=== PATIENT | male | born 1930 | race Caucasian/White ===

== ENCOUNTER 2018-03-26 14:03 | Inpatient (IN) | payer MEDICARE, OTHER ==
[~2018-03-26] VITALS: Ht 167.6 cm; Wt 99.1 kg
[~2018-03-26 14:03] MED LIST: ALPR-624 PO; ASPI-1009 PO; BISA10SU60 RC; HYDR-4353 PO; HYT1T PO; LOSA1TAB39 PO; MAGN296S50 PO; METO50TA17 PO; MOME13HF INH; NOR5T PO; PANT-47 PO; SIMV10TA2 PO
[2018-03-26 15:09] LABS: BASOPHILS % (AUTO) 0 % (0-1); EOSINOPHILS # (AUTO) 0.4 X10'3 (0-0.9); EOSINOPHILS % (AUTO) 1.1 % (0-6); HEMATOCRIT 44.1 % (42.0-52.0); HEMOGLOBIN 14.6 g/dl (14.0-17.9); LYMPHOCYTES # (AUTO) 1.4 X10'3 (1.1-4.8); LYMPHOCYTES % (AUTO) 3.7 % (21-51); MEAN CORPUSCULAR HEMOGLOBIN 30.7 PG (27.0-31.0); MEAN PLATELET VOLUME 8.6 FL (7.4-10.4); MONOCYTES # (AUTO) 1.6 X10'3 (0-0.9); MONOCYTES % (AUTO) 4.1 % (2-12); NEUTROPHILS % (AUTO) 91.1 % (42-75); PLATELET COUNT 235 X10'3 (140-440); RED BLOOD COUNT 4.75 X10'6 (4.70-6.10); RED CELL DISTRIBUTION WIDTH 13.4 % (11.5-14.5)
[2018-03-26 15:15] LABS: WHITE BLOOD COUNT 38.4 X10'3 (4.5-11.0)
[2018-03-26 15:20] LABS: ALANINE AMINOTRANSFERASE 31 U/L (12-78); ALBUMIN 3.8 G/DL (3.4-5.0); ALBUMIN/GLOBULIN RATIO 1.1 (1.1-1.5); ALKALINE PHOSPHATASE 57 IU/L (46-116); ANION GAP 13 (8-16); ASPARTATE AMINO TRANSFERASE 19 U/L (10-37); BILIRUBIN,TOTAL 1.1 MG/DL (0.1-1.0); BLOOD UREA NITROGEN 31 MG/DL (7-18); BUN/CREATININE RATIO 15.3 (5.4-32.0); CALCIUM 9.1 MG/DL (8.5-10.1); CHLORIDE 101 MMOL/L (99-107); CREATININE 2.03 MG/DL (0.60-1.10); GLUCOSE 144 MG/DL (70-104); POTASSIUM 3.7 MMOL/L (3.5-5.1); SODIUM 140 MMOL/L (135-145); TOTAL PROTEIN 7.4 G/DL (6.4-8.2); eGFR 31 ML/MIN
[2018-03-26 15:32] LABS: INR 1.2 INR; PARTIAL THROMBOPLASTIN TIME 27 SECONDS (22-32); PROTHROMBIN TIME 11.7 SECONDS (9.0-12.0)
[2018-03-26] MEDS ORDERED: acetaminophen 325mg tablet PO STA (15:48)
[2018-03-26 15:49] LABS: PLATELET ESTIMATE NORMAL; TOTAL CELLS COUNTED 100
[2018-03-26] MEDS ORDERED: CefTRIAXone/D5W-Rocephin 1gm 50 ML IV ONE (15:50)
[2018-03-26] MEDS ORDERED: normal saline 1000ML IV soln IV ONE (15:50)
[2018-03-26] MEDS ORDERED: azithromycin/NS 500mg/250ml 250 ML IV ONE (15:50)
[2018-03-26] MEDS ORDERED: magnesium Cl slow-release 64mg tablet PO PRN (17:10)
[2018-03-26] MEDS ORDERED: potassium Cl 20 mEq SR tablet PO PRN (17:10)
[2018-03-26] MEDS ORDERED: ondansetron/PF 4mg/2ml inj IV PRN (17:10)
[2018-03-26] MEDS ORDERED: magnesium 4gm in 100ml NS 100 ML IV PRN (17:10)
[2018-03-26] MEDS ORDERED: mag hydrox/Alum hydrox/simeth 30ml oral suspension PO PRN (17:10)
[2018-03-26] MEDS ORDERED: potassium Cl 40MEQ/NS 500ml 500 ML IV PRN ×2 (17:10)
[2018-03-26] MEDS: normal saline 1000ml 1,000 ML IV SCH (18:35)
[2018-03-26] MEDS ORDERED: FURO-150 PO (18:56)
[2018-03-26] MEDS ORDERED: TRAZ-219 PO (18:56)
[2018-03-26] MEDS ORDERED: NIFE90TA44 PO (18:56)
[2018-03-26] MEDS ORDERED: POTA10TA19 PO (18:56)
[2018-03-26] MEDS ORDERED: TAMS0.4C32 PO (18:56)
[2018-03-26] MEDS ORDERED: SENN-162 PO (18:56)
[2018-03-26] MEDS: heparin, porcine 5000 units/ml vial SQ SCH (20:23)
[2018-03-26] MEDS ORDERED: MESSAGE TO PHARMACY PO ONE (21:20)
[2018-03-26] MEDS ORDERED: glucagon, human recombinant 1mg kit SUBCUT PRN (21:20)
[2018-03-26] MEDS ORDERED: dextrose 50%-water 50ml dispensing syringe IV PRN ×2 (21:20)
[2018-03-26] MEDS ORDERED: dextrose ORAL solution 15 GM/59 ML bottle PO PRN ×2 (21:20)
[2018-03-26 21:30] VITALS: BP 135/66
[2018-03-26] MEDS: insulin glargine (Lantus) pen - multi-dose SQ SCH (21:44)
[2018-03-26] MEDS ORDERED: FLUT1AER INH (21:59)
[2018-03-26 22:06] LABS: HEMOGLOBIN A1C 6.3 % (4.5-6.2)
[2018-03-27] VITALS: BP_SYST 109; BP_SYST 118; BP_DIAS 60; BP_DIAS 68
[2018-03-27] MEDS: guaiFENesin ER 600mg tablet PO SCH ×3 (00:01→20:33)
[2018-03-27] MEDS ORDERED: ipratropium/albuterol 3ml nebule NEB PRN (00:35)
[2018-03-27] MEDS: HYDROcodone/acetaminophen 10/325mg tab PO PRN ×3 (02:47→16:51)
[2018-03-27 05:12] LABS: BASOPHILS % (AUTO) 0.1 % (0-1); EOSINOPHILS % (AUTO) 0 % (0-6); HEMATOCRIT 38.3 % (42.0-52.0); HEMOGLOBIN 12.7 g/dl (14.0-17.9); LYMPHOCYTES # (AUTO) 0.7 X10'3 (1.1-4.8); LYMPHOCYTES % (AUTO) 2.6 % (21-51); MEAN CORPUSCULAR HEMOGLOBIN 30.8 PG (27.0-31.0); MEAN CORPUSCULAR HGB CONC 33.2 % (33.0-36.5); MEAN CORPUSCULAR VOLUME 92.8 FL (78-98); MEAN PLATELET VOLUME 9.1 FL (7.4-10.4); MONOCYTES # (AUTO) 1.1 X10'3 (0-0.9); MONOCYTES % (AUTO) 4.1 % (2-12); NEUTROPHILS # (AUTO) 25.2 X10'3 (1.8-7.7); NEUTROPHILS % (AUTO) 93.2 % (42-75); PLATELET COUNT 206 X10'3 (140-440); RED BLOOD COUNT 4.12 X10'6 (4.70-6.10); RED CELL DISTRIBUTION WIDTH 13.2 % (11.5-14.5)
[2018-03-27 05:23] LABS: ALBUMIN 3.1 G/DL (3.4-5.0); ANION GAP 12 (8-16); BLOOD UREA NITROGEN 28 MG/DL (7-18); BUN/CREATININE RATIO 17.5 (5.4-32.0); CHLORIDE 104 MMOL/L (99-107); GLUCOSE 131 MG/DL (70-104); MAGNESIUM 1.7 MG/DL (1.5-2.4); POTASSIUM 3.4 MMOL/L (3.5-5.1); SODIUM 140 MMOL/L (135-145); TOTAL CARBON DIOXIDE 23.7 MMOL/L (24-32); eGFR 41 ML/MIN
[2018-03-27 06:43] LABS: TOTAL CELLS COUNTED 100
[2018-03-27 06:44] LABS: PLATELET ESTIMATE NORMAL
[2018-03-27 07:00] VITALS: BP 132/60
[2018-03-27] MEDS: K and/or MAG REPLACEMENT MC SCH (07:39)
[2018-03-27] MEDS: aspirin 81mg tablet.DR PO SCH (07:39)
[2018-03-27] MEDS: heparin, porcine 5000 units/ml vial SQ SCH (07:39)
[2018-03-27] MEDS: CefTRIAXone 2gm/D5W 50ml 50 ML IV SCH (07:39)
[2018-03-27] MEDS: potassium Cl 20 mEq SR tablet PO PRN ×3 (07:42→20:35)
[2018-03-27] MEDS: azithromycin/NS 500mg/250ml 250 ML IV SCH (08:56)
[2018-03-27 11:00] VITALS: BP 118/68
[2018-03-27 19:45] VITALS: BP 124/67
[2018-03-27] MEDS: carVEDilol 3.125mg tablet PO SCH (20:34)
[2018-03-27] MEDS: apixaban 2.5mg tablet PO SCH (20:34)
[2018-03-27] MEDS: lactobacillus rhamnosus 10,000 MMU CELLS/CAPSULE PO SCH (20:34)
[2018-03-27] MEDS: atorvastatin 10mg tablet PO SCH (20:35)
[2018-03-27] MEDS: traZODone 50mg tablet PO SCH (21:29)
[2018-03-27] MEDS: insulin glargine (Lantus) pen - multi-dose SQ SCH (21:33)
[2018-03-27] MEDS: albuterol 2.5 MG/3 ML nebule NEB SCH ×2 (22:54→22:59)
[2018-03-27] MEDS: BUDESONIDE 0.25 MG/2 ML AMPUL.NEB IH SCH (23:00)
[2018-03-28] VITALS: BP 115/62
[2018-03-28 02:12] VITALS: BP 115/62
[2018-03-28] MEDS: acetaminophen 325mg tablet PO PRN (03:45)
[2018-03-28 04:44] LABS: BASOPHILS % (AUTO) 0 % (0-1); EOSINOPHILS # (AUTO) 0.3 X10'3 (0-0.9); EOSINOPHILS % (AUTO) 1.8 % (0-6); HEMATOCRIT 36.8 % (42.0-52.0); HEMOGLOBIN 12.2 g/dl (14.0-17.9); LYMPHOCYTES % (AUTO) 6.1 % (21-51); MEAN CORPUSCULAR HEMOGLOBIN 30.5 PG (27.0-31.0); MEAN CORPUSCULAR HGB CONC 33.1 % (33.0-36.5); MEAN CORPUSCULAR VOLUME 91.9 FL (78-98); MEAN PLATELET VOLUME 8.9 FL (7.4-10.4); MONOCYTES # (AUTO) 1.1 X10'3 (0-0.9); MONOCYTES % (AUTO) 7.1 % (2-12); NEUTROPHILS # (AUTO) 13.3 X10'3 (1.8-7.7); PLATELET COUNT 210 X10'3 (140-440); RED BLOOD COUNT 4.01 X10'6 (4.70-6.10); RED CELL DISTRIBUTION WIDTH 13.6 % (11.5-14.5); WHITE BLOOD COUNT 15.6 X10'3 (4.5-11.0)
[2018-03-28 04:52] LABS: ALBUMIN 2.8 G/DL (3.4-5.0); ANION GAP 8 (8-16); BLOOD UREA NITROGEN 24 MG/DL (7-18); BUN/CREATININE RATIO 14.6 (5.4-32.0); CALCIUM 8.2 MG/DL (8.5-10.1); CHLORIDE 105 MMOL/L (99-107); CREATININE 1.64 MG/DL (0.60-1.10); GLUCOSE 127 MG/DL (70-104); MAGNESIUM 1.7 MG/DL (1.5-2.4); POTASSIUM 3.8 MMOL/L (3.5-5.1); SODIUM 137 MMOL/L (135-145); TOTAL CARBON DIOXIDE 24.1 MMOL/L (24-32); eGFR 40 ML/MIN
[2018-03-28 08:00] VITALS: BP 123/69
[2018-03-28] MEDS ORDERED: non-formulary drug (Fluticasone/Vilanterol (Breo Ellipta 100-25 Mcg INH) 1 PUFF) INH SCH (08:00)
[2018-03-28] MEDS: K and/or MAG REPLACEMENT MC SCH (08:00)
[2018-03-28] MEDS: BUDESONIDE 0.25 MG/2 ML AMPUL.NEB IH SCH ×2 (08:08→22:40)
[2018-03-28] MEDS: albuterol 2.5 MG/3 ML nebule NEB SCH ×3 (08:08→22:40)
[2018-03-28] MEDS: CefTRIAXone 2gm/D5W 50ml 50 ML IV SCH (08:16)
[2018-03-28] MEDS: apixaban 2.5mg tablet PO SCH ×2 (08:16→19:38)
[2018-03-28] MEDS: aspirin 81mg tablet.DR PO SCH (08:16)
[2018-03-28] MEDS: guaiFENesin ER 600mg tablet PO SCH ×2 (08:16→19:37)
[2018-03-28] MEDS: lactobacillus rhamnosus 10,000 MMU CELLS/CAPSULE PO SCH ×2 (08:16→19:37)
[2018-03-28] MEDS: carVEDilol 3.125mg tablet PO SCH ×2 (08:16→19:38)
[2018-03-28] MEDS: azithromycin/NS 500mg/250ml 250 ML IV SCH (09:14)
[2018-03-28] MEDS: HYDROcodone/acetaminophen 10/325mg tab PO PRN ×2 (09:15→19:49)
[2018-03-28] MEDS: insulin Lispro (HumaLOG) vial - multi-dose SQ SCH (09:27)
[2018-03-28 12:03] VITALS: BP 153/81
[2018-03-28] MEDS: normal saline 1000ml 1,000 ML IV SCH (17:07)
[2018-03-28 18:30] VITALS: BP 117/75
[2018-03-28] MEDS: carvedilol 6.25mg tablet PO SCH (20:00)
[2018-03-28] MEDS: traZODone 50mg tablet PO SCH (21:29)
[2018-03-28] MEDS: atorvastatin 10mg tablet PO SCH (21:29)
[2018-03-28 22:30] VITALS: BP 93/50
[2018-03-29] VITALS: BP 152/89
[2018-03-29 05:14] LABS: ALBUMIN 2.7 G/DL (3.4-5.0); ANION GAP 8 (8-16); BLOOD UREA NITROGEN 20 MG/DL (7-18); CALCIUM 8.1 MG/DL (8.5-10.1); CHLORIDE 105 MMOL/L (99-107); CREATININE 1.54 MG/DL (0.60-1.10); GLUCOSE 100 MG/DL (70-104); MAGNESIUM 1.8 MG/DL (1.5-2.4); POTASSIUM 3.7 MMOL/L (3.5-5.1); SODIUM 137 MMOL/L (135-145); TOTAL CARBON DIOXIDE 24.1 MMOL/L (24-32); eGFR 43 ML/MIN
[2018-03-29 05:22] LABS: BASOPHILS % (AUTO) 0.4 % (0-1); EOSINOPHILS # (AUTO) 0.3 X10'3 (0-0.9); EOSINOPHILS % (AUTO) 2.9 % (0-6); HEMATOCRIT 37.3 % (42.0-52.0); HEMOGLOBIN 12.5 g/dl (14.0-17.9); LYMPHOCYTES # (AUTO) 1.1 X10'3 (1.1-4.8); MEAN CORPUSCULAR HEMOGLOBIN 30.9 PG (27.0-31.0); MEAN CORPUSCULAR HGB CONC 33.4 % (33.0-36.5); MEAN CORPUSCULAR VOLUME 92.5 FL (78-98); MEAN PLATELET VOLUME 9.5 FL (7.4-10.4); MONOCYTES # (AUTO) 1.1 X10'3 (0-0.9); NEUTROPHILS # (AUTO) 8.8 X10'3 (1.8-7.7); NEUTROPHILS % (AUTO) 76.7 % (42-75); PLATELET COUNT 233 X10'3 (140-440); RED BLOOD COUNT 4.03 X10'6 (4.70-6.10); RED CELL DISTRIBUTION WIDTH 13.2 % (11.5-14.5); WHITE BLOOD COUNT 11.5 X10'3 (4.5-11.0)
[2018-03-29] MEDS: K and/or MAG REPLACEMENT MC SCH (06:43)
[2018-03-29 07:00] VITALS: BP 159/90
[2018-03-29] MEDS: BUDESONIDE 0.25 MG/2 ML AMPUL.NEB IH SCH ×2 (07:07→20:47)
[2018-03-29] MEDS: albuterol 2.5 MG/3 ML nebule NEB SCH ×4 (07:08→20:47)
[2018-03-29] MEDS: lactobacillus rhamnosus 10,000 MMU CELLS/CAPSULE PO SCH ×2 (07:21→21:01)
[2018-03-29] MEDS: apixaban 2.5mg tablet PO SCH ×2 (07:21→21:00)
[2018-03-29] MEDS: carvedilol 6.25mg tablet PO SCH ×2 (07:21→21:01)
[2018-03-29] MEDS: CefTRIAXone 2gm/D5W 50ml 50 ML IV SCH (07:21)
[2018-03-29] MEDS: aspirin 81mg tablet.DR PO SCH (07:21)
[2018-03-29] MEDS: guaiFENesin ER 600mg tablet PO SCH ×2 (07:21→21:01)
[2018-03-29] MEDS: acetaminophen 325mg tablet PO PRN (07:22)
[2018-03-29] MEDS: azithromycin/NS 500mg/250ml 250 ML IV SCH (09:36)
[2018-03-29] MEDS: insulin Lispro (HumaLOG) vial - multi-dose SQ SCH ×2 (09:39→18:54)
[2018-03-29] MEDS: HYDROcodone/acetaminophen 10/325mg tab PO PRN ×2 (12:17→20:14)
[2018-03-29 18:30] VITALS: BP 157/79
[2018-03-29] MEDS: insulin glargine (Lantus) pen - multi-dose SQ SCH (21:00)
[2018-03-29] MEDS: traZODone 50mg tablet PO SCH (21:01)
[2018-03-29] MEDS: atorvastatin 10mg tablet PO SCH (21:01)
[2018-03-30] VITALS: BP_SYST 133; BP_SYST 138; BP_DIAS 68; BP_DIAS 72
[2018-03-30 04:14] LABS: ALBUMIN 2.6 G/DL (3.4-5.0); ANION GAP 12 (8-16); BLOOD UREA NITROGEN 22 MG/DL (7-18); BUN/CREATININE RATIO 13.5 (5.4-32.0); CALCIUM 7.9 MG/DL (8.5-10.1); CHLORIDE 106 MMOL/L (99-107); CREATININE 1.63 MG/DL (0.60-1.10); GLUCOSE 99 MG/DL (70-104); MAGNESIUM 1.8 MG/DL (1.5-2.4); POTASSIUM 3.7 MMOL/L (3.5-5.1); SODIUM 141 MMOL/L (135-145); eGFR 40 ML/MIN
[2018-03-30 04:32] LABS: BASOPHILS # (AUTO) 0.1 X10'3 (0-0.2); BASOPHILS % (AUTO) 0.6 % (0-1); EOSINOPHILS # (AUTO) 0.4 X10'3 (0-0.9); EOSINOPHILS % (AUTO) 4.7 % (0-6); HEMATOCRIT 34.4 % (42.0-52.0); HEMOGLOBIN 11.6 g/dl (14.0-17.9); LYMPHOCYTES # (AUTO) 1.4 X10'3 (1.1-4.8); LYMPHOCYTES % (AUTO) 14.3 % (21-51); MEAN CORPUSCULAR HEMOGLOBIN 31.1 PG (27.0-31.0); MEAN CORPUSCULAR HGB CONC 33.7 % (33.0-36.5); MEAN CORPUSCULAR VOLUME 92.2 FL (78-98); MEAN PLATELET VOLUME 8.8 FL (7.4-10.4); MONOCYTES # (AUTO) 1.1 X10'3 (0-0.9); MONOCYTES % (AUTO) 11.8 % (2-12); NEUTROPHILS # (AUTO) 6.5 X10'3 (1.8-7.7); NEUTROPHILS % (AUTO) 68.6 % (42-75); PLATELET COUNT 266 X10'3 (140-440); RED BLOOD COUNT 3.74 X10'6 (4.70-6.10); RED CELL DISTRIBUTION WIDTH 13.1 % (11.5-14.5); WHITE BLOOD COUNT 9.5 X10'3 (4.5-11.0)
[2018-03-30 07:00] VITALS: BP 146/76
[2018-03-30] MEDS: CefTRIAXone 2gm/D5W 50ml 50 ML IV SCH (07:31)
[2018-03-30] MEDS: K and/or MAG REPLACEMENT MC SCH (08:00)
[2018-03-30] MEDS: azithromycin/NS 500mg/250ml 250 ML IV SCH (08:00)
[2018-03-30] MEDS: BUDESONIDE 0.25 MG/2 ML AMPUL.NEB IH SCH (08:33)
[2018-03-30] MEDS: albuterol 2.5 MG/3 ML nebule NEB SCH ×2 (08:34→10:35)
[2018-03-30] MEDS: guaiFENesin ER 600mg tablet PO SCH (08:59)
[2018-03-30] MEDS: carvedilol 6.25mg tablet PO SCH (08:59)
[2018-03-30] MEDS: apixaban 2.5mg tablet PO SCH (09:00)
[2018-03-30] MEDS: lactobacillus rhamnosus 10,000 MMU CELLS/CAPSULE PO SCH (09:00)
[2018-03-30] MEDS: aspirin 81mg tablet.DR PO SCH (09:00)
[2018-03-30] MEDS: HYDROcodone/acetaminophen 10/325mg tab PO PRN (09:19)
[2018-03-30] MEDS ORDERED: AZIT500T5 PO (11:03)
[2018-03-30] MEDS ORDERED: LOSA50TA64 PO (11:03)
[2018-03-30] MEDS ORDERED: APIX2.5T PO (11:03)
[2018-03-30] MEDS ORDERED: CEFD300C3 PO (11:03)
== END 2018-03-30 12:32 | disposition home or self-care (01) | DRG 871 ==
LOC: ER 14:03 → ED HOLD 17:07 → EDBEDREQ 20:51 → SUR 3N 21:13
PROVIDERS: ADMIT Internal Medicine; ATTEND Family Medicine
PROC: 5A09357 Assistance with Respiratory Ventilation, Less than 24 Consecutive Hours, Continuous Positive Airway Pressure (ICD-10-PCS; principal; 2018-03-28)
PROC: 5A09357 Assistance with Respiratory Ventilation, Less than 24 Consecutive Hours, Continuous Positive Airway Pressure (ICD-10-PCS; 2018-03-29)
DX: A41.9 Sepsis, unspecified organism (principal); J18.1 Lobar pneumonia, unspecified organism; N17.9 Acute kidney failure, unspecified; I13.0 Hypertensive heart and chronic kidney disease with heart failure and stage 1 through stage 4 chronic kidney disease, or unspecified chronic kidney disease; I50.20 Unspecified systolic (congestive) heart failure; J44.0 Chronic obstructive pulmonary disease with (acute) lower respiratory infection; I48.91 Unspecified atrial fibrillation; G47.33 Obstructive sleep apnea (adult) (pediatric); R09.02 Hypoxemia; M19.90 Unspecified osteoarthritis, unspecified site; E11.22 Type 2 diabetes mellitus with diabetic chronic kidney disease; N18.9 Chronic kidney disease, unspecified; I25.10 Atherosclerotic heart disease of native coronary artery without angina pectoris; Z72.89 Other problems related to lifestyle; I25.2 Old myocardial infarction; Z95.5 Presence of coronary angioplasty implant and graft; Z79.01 Long term (current) use of anticoagulants; Z79.82 Long term (current) use of aspirin; Z79.899 Other long term (current) drug therapy; Z87.891 Personal history of nicotine dependence; Z82.49 Family history of ischemic heart disease and other diseases of the circulatory system; Z83.3 Family history of diabetes mellitus
CPT/HCPCS: 36415; 71045; 80048; 80053; 82948; 83036; 83605; 83735; 84145; 84484; 85025; 85610; 85730; 87040; 87070; 93005; 93306; 94640; 94667; 94668; 94760; 96360; 96361; 99285; G0378; J0456; J0696; J1644; J1815; J7030

== ENCOUNTER 2018-04-06 23:36 | Inpatient (IN) | payer MEDICARE, OTHER ==
[~2018-04-06] VITALS: Ht 175.3 cm; Wt 91.5 kg
[~2018-04-06 23:36] MED LIST changes: -ALPR-624 PO; +APIX2.5T PO; +AZIT500T5 PO; +CEFD300C3 PO; +FLUT1AER INH; -HYT1T PO; -LOSA1TAB39 PO; +LOSA50TA64 PO; -MAGN296S50 PO; -METO50TA17 PO; -MOME13HF INH; -NOR5T PO; -PANT-47 PO; +SENN-162 PO; +TAMS0.4C32 PO; +TRAZ-219 PO
[2018-04-07] MEDS ORDERED: diltiazem 5mg/ml 5ml inj. IV ONE
[2018-04-07 00:07] LABS: BASOPHILS # (AUTO) 0.2 X10'3 (0-0.2); BASOPHILS % (AUTO) 1.7 % (0-1); EOSINOPHILS # (AUTO) 0.3 X10'3 (0-0.9); HEMATOCRIT 43.6 % (42.0-52.0); LYMPHOCYTES # (AUTO) 2.1 X10'3 (1.1-4.8); LYMPHOCYTES % (AUTO) 16.1 % (21-51); MEAN CORPUSCULAR HEMOGLOBIN 30.1 PG (27.0-31.0); MEAN CORPUSCULAR HGB CONC 32.1 % (33.0-36.5); MEAN CORPUSCULAR VOLUME 93.8 FL (78-98); MEAN PLATELET VOLUME 8.4 FL (7.4-10.4); MONOCYTES # (AUTO) 0.7 X10'3 (0-0.9); MONOCYTES % (AUTO) 5.6 % (2-12); NEUTROPHILS # (AUTO) 9.7 X10'3 (1.8-7.7); NEUTROPHILS % (AUTO) 74.6 % (42-75); PLATELET COUNT 378 X10'3 (140-440); RED BLOOD COUNT 4.65 X10'6 (4.70-6.10); RED CELL DISTRIBUTION WIDTH 12.9 % (11.5-14.5)
[2018-04-07 00:44] LABS: ALANINE AMINOTRANSFERASE 57 U/L (12-78); ALBUMIN 3.3 G/DL (3.4-5.0); ALBUMIN/GLOBULIN RATIO 0.9 (1.1-1.5); ALKALINE PHOSPHATASE 64 IU/L (46-116); ANION GAP 14 (8-16); ASPARTATE AMINO TRANSFERASE 25 U/L (10-37); BILIRUBIN,TOTAL 0.3 MG/DL (0.1-1.0); BLOOD UREA NITROGEN 26 MG/DL (7-18); BUN/CREATININE RATIO 15.2 (5.4-32.0); CALCIUM 8.2 MG/DL (8.5-10.1); CHLORIDE 103 MMOL/L (99-107); CREATININE 1.71 MG/DL (0.60-1.10); GLUCOSE 125 MG/DL (70-104); POTASSIUM 3.5 MMOL/L (3.5-5.1); SODIUM 139 MMOL/L (135-145); TOTAL PROTEIN 6.8 G/DL (6.4-8.2); eGFR 38 ML/MIN
[2018-04-07] MEDS ORDERED: metoclopramide 5 mg/ml inj IV PRN (00:50)
[2018-04-07] MEDS ORDERED: ondansetron/PF 4mg/2ml inj IV PRN (00:50)
[2018-04-07] MEDS ORDERED: morphine 4 MG/ML inj SYRINge IV PRN (00:50)
[2018-04-07] MEDS ORDERED: HYDROcodone/acetaminophen 10/325mg tab PO PRN (00:50)
[2018-04-07] MEDS ORDERED: MESSAGE TO PHARMACY PO ONE (00:50)
[2018-04-07] MEDS ORDERED: HYDROmorphone 1 mg/ml syringe IV PRN (00:50)
[2018-04-07] MEDS ORDERED: acetaminophen 325mg tablet PO PRN (00:50)
[2018-04-07] MEDS ORDERED: bisacodyl 10mg suppository rectal RC PRN (00:50)
[2018-04-07] MEDS ORDERED: diphenhydrAMINE 50 mg/ml inj IV PRN (00:50)
[2018-04-07] MEDS ORDERED: mag hydrox/Alum hydrox/simeth 30ml oral suspension PO PRN (00:50)
[2018-04-07] MEDS ORDERED: magnesium hydroxide 30ml (MOM) UD suspension PO PRN (00:50)
[2018-04-07] MEDS ORDERED: acetaminophen 650mg rectal suppository RC PRN (00:50)
[2018-04-07] MEDS ORDERED: dextrose ORAL solution 15 GM/59 ML bottle PO PRN ×2 (00:50)
[2018-04-07] MEDS ORDERED: glucagon, human recombinant 1mg kit SUBCUT PRN (00:50)
[2018-04-07] MEDS ORDERED: diphenhydrAMINE 25mg capsule PO PRN (00:50)
[2018-04-07] MEDS ORDERED: insulin Lispro (HumaLOG) vial - multi-dose SQ SCH (00:50)
[2018-04-07] MEDS ORDERED: dextrose 50%-water 50ml dispensing syringe IV PRN ×2 (00:50)
[2018-04-07 01:09] LABS: D-DIMER 1.06 MG/L FEU (0-0.50); INR 1.2 INR; PARTIAL THROMBOPLASTIN TIME 25 SECONDS (22-32)
[2018-04-07 01:26] LABS: CREATINE KINASE 288 U/L (39-308); LIPASE 278 U/L (73-393)
[2018-04-07 04:40] LABS: MAGNESIUM 1.7 MG/DL (1.5-2.4); PHOSPHORUS 3.3 MG/DL (2.3-4.5)
[2018-04-07 07:08] VITALS: BP 188/96
--- NOTE | 2018-04-07 07:47 | NUR ---
According to patient's : Melvin is supposed to be off Lopressor.
[2018-04-07] MEDS ORDERED: tamsulosin 0.4mg capsule PO SCH (08:00)
[2018-04-07] MEDS ORDERED: aspirin 81mg tablet.DR PO SCH (08:00)
[2018-04-07] MEDS ORDERED: losartan 50mg tablet PO SCH (08:00)
[2018-04-07] MEDS ORDERED: apixaban 2.5mg tablet PO SCH (08:00)
[2018-04-07] MEDS ORDERED: doxycycline inj 100 MG in normal saline 100ml IV soln 100 ML IV SCH (08:00)
[2018-04-07] MEDS ORDERED: metoprolol tartrate 50mg tablet PO SCH (08:00)
[2018-04-07] MEDS ORDERED: docusate sod 100mg capsule PO SCH (08:00)
[2018-04-07] MEDS ORDERED: famotidine 20mg tablet PO SCH (08:00)
--- NOTE | 2018-04-07 08:27 | NUR ---
PAGER ID: [phone] MESSAGE: [phone] [phone] Melvin Trujillo says he has been no longer taking Lopressor at home, but it is in the emar from Dr Garg. Do you want him to be starting that med back up? GRETCHEN Mcgrath Ext [phone]
[2018-04-07 08:57] VITALS: BP 147/88
[2018-04-07] MEDS ORDERED: DILT180C95 PO (09:10)
[2018-04-07] MEDS ORDERED: FURO-150 PO (09:10)
--- NOTE | 2018-04-07 09:26 | NUR ---
Patient being discharged, Dr Keith says ABX not needed, Chest Xray is result of CHF.
--- NOTE | 2018-04-07 10:36 | NUR ---
PAGER ID: [phone] MESSAGE: [phone] Melvin Starr's is wondering if they can get a prescription for metoprolol. If you wanted to him to keep taking it. GRETCHEN Mcgrath Ext [phone]
--- NOTE | 2018-04-07 10:52 | NUR ---
PAGER ID: [phone] MESSAGE: [phone] Melvin Starr's is wondering if they can get a prescription for metoprolol, if you wanted him to keep taking it. She is unsure if his is . GRETCHEN Mcgrath Ext [phone]
--- NOTE | 2018-04-07 12:41 | NUR ---
Patient discharged: Stable per MD upon DC. IV and tele DC'd. Educated on meds and follow uop. Patient will set up follow up for CHF. Educated on dm survival skills, CHF and A-fib.
[2018-04-07] MEDS ORDERED: atorvastatin 10mg tablet PO SCH (21:00)
[2018-04-07] MEDS ORDERED: insulin glargine (Lantus) pen - multi-dose SQ SCH (21:00)
[2018-04-07] MEDS ORDERED: traZODone 50mg tablet PO SCH (21:00)
[2018-04-07] MEDS ORDERED: temazepam 15mg capsule PO PRN (21:00)
== END 2018-04-07 11:00 | disposition home or self-care (01) | DRG 308 ==
LOC: ER 23:36 → ED HOLD 04-07 00:49 → PCU 3S 04-07 07:05
PROVIDERS: ADMIT Family Medicine; ATTEND Internal Medicine
DX: I48.0 Paroxysmal atrial fibrillation (principal); I50.43 Acute on chronic combined systolic (congestive) and diastolic (congestive) heart failure; I16.1 Hypertensive emergency; I11.0 Hypertensive heart disease with heart failure; E03.9 Hypothyroidism, unspecified; I25.10 Atherosclerotic heart disease of native coronary artery without angina pectoris; E11.65 Type 2 diabetes mellitus with hyperglycemia; M19.90 Unspecified osteoarthritis, unspecified site; I25.2 Old myocardial infarction; Z79.82 Long term (current) use of aspirin; Z79.899 Other long term (current) drug therapy; Z79.01 Long term (current) use of anticoagulants; Z79.890 Hormone replacement therapy; Z82.49 Family history of ischemic heart disease and other diseases of the circulatory system; Z83.3 Family history of diabetes mellitus
CPT/HCPCS: 36415; 71045; 71250; 80053; 82550; 82948; 83605; 83690; 83735; 83880; 84100; 84439; 84443; 84480; 84484; 85025; 85379; 85610; 85730; 87070; 93005; 96374; 99285; G0378; J1815; J3490; J7030

== ENCOUNTER → 2021-01-28 | Emergency (ER) | payer OTHER ==
[~2021-01-28] VITALS: Ht 175.3 cm; Wt 88.6 kg
[~2021-01-28] MED LIST changes: -ASPI-1009 PO; -AZIT500T5 PO; +BICA50TA7 PO; -BISA10SU60 RC; -CEFD300C3 PO; +CHLO25TA10 PO; +DILT-94 PO; +FURO20TA4 PO; +LEVO500T89 PO; +LIDOcaine 2% 10ml TOPICAL JELLY (Urojet) MM ONE; +LIDOcaine 2% 10ml TOPICAL JELLY (Urojet) TP ONE; +LOSA25TA96 PO; -LOSA50TA64 PO; -SENN-162 PO; +SENN-263 PO; -TRAZ-219 PO; +TRAZ-256 PO
[2021-01-28 16:01] VITALS: BP 126/71
== END | disposition left against medical advice (07) ==
LOC: ER 15:56
DX: T83.091A Other mechanical complication of indwelling urethral catheter, initial encounter (principal); I48.91 Unspecified atrial fibrillation; I25.10 Atherosclerotic heart disease of native coronary artery without angina pectoris; I10 Essential (primary) hypertension; I25.2 Old myocardial infarction; E11.9 Type 2 diabetes mellitus without complications; M19.90 Unspecified osteoarthritis, unspecified site; Z87.01 Personal history of pneumonia (recurrent); Z98.890 Other specified postprocedural states; Z79.2 Long term (current) use of antibiotics; Z79.899 Other long term (current) drug therapy; Y84.6 Urinary catheterization as the cause of abnormal reaction of the patient, or of later complication, without mention of misadventure at the time of the procedure
CPT/HCPCS: 99284